=== PATIENT | female | born 1935 | race African-American/Black ===

== ENCOUNTER 2016-07-26 08:56 | Outpatient (CLI) | payer MEDICARE, BC | END 2016-07-26 08:57 | LOC: NAVSJIPCSP 08:56 | PROVIDERS: ATTEND Internal Medicine | DX: E78.5 Hyperlipidemia, unspecified (principal); I11.9 Hypertensive heart disease without heart failure; Z79.899 Other long term (current) drug therapy | CPT/HCPCS: 36415; 80061 ==

== ENCOUNTER 2016-10-23 08:05 | Outpatient (CLI) | payer MEDICARE, BC ==
[2016-10-23 13:08] LABS: #Basophils 0.1 thou/uL (0.0-0.2); #Eosinphils 0.2 thou/uL (0.0-0.7); #Lymphocytes 1.2 thou/uL (1.20-3.40); #Monocytes 0.5 thou/uL (0.11-0.59); #Neutrophils 2.9 thou/uL (1.40-6.50); %Basophils 1.8 % (0.0-1.0); %Eosinophils 4.1 % (0.0-10.0); %Lymphocytes 24.7 % (21.0-51.0); %Monocytes 10.5 % (0.0-10.0); %Neutrophils 58.8 % (42.0-75.0); Hemoglobin 11.4 g/dL (12.0-16.0); Mean Corpuscular HGB CONC 30.6 g/dL (32.0-36.0); Mean Corpuscular Hemoglobin 25.7 pg (27.0-31.0); Mean Corpuscular Volume 84.1 fl (81.0-99.0); Mean Platelet Volume 7.3 fL (7.4-10.4); Platelet Count 237 thou/uL (130-400); RBC Distribution Width 13.2 % (11.5-14.5); Red Blood Cell (RBC) Count 4.45 mill/uL (4.20-5.40)
[2016-10-23 13:11] LABS: ALT (SGPT) 9 U/L (8-55); AST (SGOT) 19 U/L (5-34); Albumin 3.7 g/dL (3.4-4.8); Alkaline Phosphatase 86 U/L (40-150); Anion Gap 13 mmol/L (10-20); BUN (Urea Nitrogen) 16 mg/dL (9.8-20.1); Bilirubin, Total 0.3 mg/dL (0.2-1.2); Calc. Creatinine Clearance 0 mL/min (70-130); Calcium 9.5 mg/dL (7.8-10.44); Carbon Dioxide 24 mmol/L (23-31); Cardiac Risk 2.6 (Less than 4.5); Chloride 104 mmol/L (98-107); Cholesterol 206 mg/dl (< 200 Desired); Estimated GFR-MDRD 56; Globulin 4.1 g/dL (2.4-3.5); Glucose 85 mg/dL (83-110); HDL Cholesterol 79 mg/dL (>60 Neg Risk); LDL Cholesterol, Calculated 116 mg/dL; Potassium 4.4 mmol/L (3.5-5.1); Protein, Total 7.8 g/dL (6.0-8.3); Sodium 137 mmol/L (136-145); Triglycerides 54 mg/dL (Less than 150)
== END 2016-10-23 08:06 ==
LOC: NAVSJIPCSP 08:05
PROVIDERS: ATTEND Internal Medicine
DX: E78.5 Hyperlipidemia, unspecified (principal); I11.9 Hypertensive heart disease without heart failure; Z79.899 Other long term (current) drug therapy
CPT/HCPCS: 36415; 80053; 80061; 85025

== ENCOUNTER 2017-01-25 08:19 | Outpatient (CLI) | payer MEDICARE, BC ==
[2017-01-25 12:44] LABS: Cardiac Risk 2.5 (Less than 4.5)
== END 2017-01-25 08:20 | disposition home or self-care (01) ==
LOC: NAVSJIPCSP 08:19
PROVIDERS: ATTEND Internal Medicine
DX: E78.5 Hyperlipidemia, unspecified (principal); Z79.899 Other long term (current) drug therapy
CPT/HCPCS: 36415; 80061

== ENCOUNTER 2017-08-28 08:54 | Observation (INO) | payer MEDICARE, BC ==
[2017-08-28] MEDS ORDERED: Sodium Chloride 0.9% 1,000 ML ONE (09:04)
[2017-08-28] MEDS ORDERED: Acetaminophen 500 MG TAB ONE (09:24)
[2017-08-28 09:36] LABS: ALT (SGPT) 17 U/L (8-55); AST (SGOT) 33 U/L (5-34); Albumin 3.4 g/dL (3.4-4.8); Alkaline Phosphatase 116 U/L (40-150); Anion Gap 15 mmol/L (10-20); BUN (Urea Nitrogen) 22 mg/dL (9.8-20.1); Bilirubin, Total 0.6 mg/dL (0.2-1.2); Calc. Creatinine Clearance 0 mL/min (70-130); Calcium 9.5 mg/dL (7.8-10.44); Carbon Dioxide 20 mmol/L (23-31); Chloride 108 mmol/L (98-107); Estimated GFR-MDRD 34; Globulin 4.2 g/dL (2.4-3.5); Glucose 99 mg/dL (83-110); Protein, Total 7.6 g/dL (6.0-8.3); Sodium 139 mmol/L (136-145)
[2017-08-28 09:53] LABS: Hemoglobin 12.2 g/dL (12.0-16.0); Mean Corpuscular HGB CONC 31.8 g/dL (32.0-36.0); Mean Corpuscular Hemoglobin 25.5 pg (27.0-31.0); Mean Corpuscular Volume 80.2 fl (81.0-99.0); Mean Platelet Volume 7.8 fL (7.4-10.4); Platelet Count 185 thou/uL (130-400); RBC Distribution Width 12.8 % (11.5-14.5); Red Blood Cell (RBC) Count 4.78 mill/uL (4.20-5.40); White Blood Cell (WBC) Count 4.3 thou/uL (4.8-10.8)
[2017-08-28 10:32] LABS: Band 28 % (5-11); Burr Cells SLIGHT = 2-5 cells (100X) (0-1/hpf); Hypochromia SLIGHT = 6-15 cells (100X) (0-5/hpf); Lymphocytes 3 % (21-51); MDiff Complete? YES; Metamyelocyte 1 % (0-0); Monocytes 2 % (0-10); Neutrophil 65 % (42-75); PLT Morphology Comment Appears Adequate
[2017-08-28] MEDS ORDERED: Ondansetron HCl/PF 4 MG/2 ML Vial IVP PRN (12:58)
[2017-08-28] MEDS ORDERED: Ondansetron ODT 4 MG TAB PO PRN (12:58)
[2017-08-28] MEDS ORDERED: Sodium Chloride 0.9% 1,000 ML IV SCH (13:00)
[2017-08-28] MEDS ORDERED: Acetaminophen 500 MG TAB PO PRN (13:10)
--- NOTE | 2017-08-28 13:28 | HP ---
DATE OF ADMISSION: 08/28/2017 CHIEF COMPLAINT: Nausea, vomiting, and diarrhea. BRIEF HISTORY: This is a very pleasant 82-year-old -[place] female who presented to the [facility] behavioral health unit in [place] with nausea, vomiting, diarrhea since 2:00 early this morning. She denies any unusual diet. She denies any fever or chills. She denies any chest pain or shortness of breath. S he did have some lightheadedness. She was evaluated in the emergency room and was found to be slight ly dehydrated and was given a liter of IV fluids. She is feeling better, but still is weak. Laboratory values show an elevation in her creatinine to 1.7 and 27% bands. I advised the ER physici an to admit her to observation with IV fluids, Zofran, will start her on a clear liquid diet. Recheck laboratory values in the morning and if she is doing well, will discharge her home. The hugh ent denies any concerns other than lightheadedness. Her friend is in the room. PAST MEDICAL HISTORY: 1. Hypertension. 2. Glaucoma. 3. Renal calculi. 4. History of bladder cancer, status post cystectomy and urostomy placement. PAST SURGICAL HISTORY: 1. Cystectomy and urostomy placement. 2. Hysterectomy. FAMILY HISTORY: Noncontributory to current admission. PSYCHOSOCIAL HISTORY: Former smoker. No alcohol or IV drug abuse. Fairly active and independent. ALLERGIES: No known drug allergies. REVIEW OF SYSTEMS: Cardiovascular System: Denies any chest pain, shortness of breath, palpitations, PND, orthopnea, pedal edema. Respiratory System: Denies any chronic cough, expectoration or pleuri tic type chest pain. Gastrointestinal System: Denies any nausea, vomiting, diarrhea, constipation, hematemesis, melena, hematochezia. Genitourinary System: Denies any frequency, urgency, dysuria or hematuria. Central Nervous System: Generalized weakness. SHEENT: No difficulty with speech, visio n, hearing or swallowing. PHYSICAL EXAMINATION: GENERAL: Very pleasant, 82-year-old -Tongan female resting comfortably in no apparent distr ess. She responds appropriately to questions. She is alert, awake, and oriented x3. VITAL SIGNS: She is afebrile, heart rate 72, respirations 18, blood pressure not charted yet, but in the emergency room, it was within normal limits. HEENT: Normocephalic, atraumatic. Pupils equal and reactive to light and accommodation. NECK: No JVD or thyromegaly, cervical adenopathy, throat exudates. Oropharyngeal mucosa is dry. CARDIOVASCULAR SYSTEM: S1, S2, rate and rhythm regular. RESPIRATORY SYSTEM: Vesicular breath sounds heard in all lung carver. ABDOMEN: Soft, nontender, bowel sounds heard in all quadrants. Her ostomy site is healthy. EXTREMITIES: Without cyanosis or clubbing. Peripheral pulses are palpable. CENTRAL NERVOUS SYSTEM: Grossly nonfocal. LABORATORY VALUES: Done in the emergency room shows a white count of 4.3, H and H is 12.2 and 38.3. Sodium 139, potassium 4.0, BUN and creatinine 22 and 1.73. IMPRESSION: 1. Nausea, vomiting, diarrhea since 2:00 this morning with no unusual diet, possible viral syndrome. 2. Mild renal insufficiency, likely secondary to dehydration. 3. Hypertension. 4. Glaucoma. 5. History of bladder cancer, status post cystectomy and urostomy. 6. History of renal calculi, stable. PLAN: 1. Admit her to observation. 2. IV fluids. 3. IV Zofran. 4. Resume home medications. 5. Clear liquid diet, advance as tolerated. 6. DVT and stress ulcer prophylaxis. 7. Decubitus precautions. 8. Recheck laboratory values in the morning. 9. Anticipate discharging her home tomorrow. I discussed with patient and family in detail. All qu estions answered.
[2017-08-28] MEDS ORDERED: Famotidine 20 MG TAB PO SCH ×2 (13:30→14:00)
[2017-08-28 13:35] VITALS: BMI 23.7
[2017-08-28] MEDS: Dextrose 5 % And 0.9 % NaCl 1,000 ML IV SCH (13:53)
[2017-08-28] MEDS: Famotidine 20 MG TAB PO SCH (21:00)
[2017-08-29] MEDS: Dextrose 5 % And 0.9 % NaCl 1,000 ML IV SCH (00:25)
[2017-08-29] MEDS ORDERED: Ondansetron HCl/PF 4 MG/2 ML Vial IVP PRN (02:54)
[2017-08-29] MEDS ORDERED: Ondansetron ODT 4 MG TAB PO PRN (02:54)
[2017-08-29 05:38] LABS: Anion Gap 18 mmol/L (10-20)
[2017-08-29 05:39] LABS: Band 11 % (5-11); Eosinophils 1 % (0-10); Hemoglobin 11.5 g/dL (12.0-16.0); Lymphocytes 3 % (21-51); MDiff Complete? YES; Mean Corpuscular HGB CONC 31.6 g/dL (32.0-36.0); Mean Corpuscular Volume 82.2 fl (81.0-99.0); Mean Platelet Volume 7.8 fL (7.4-10.4); Metamyelocyte 2 % (0-0); Monocytes 6 % (0-10); Myelocyte 4 % (0-0); Neutrophil 73 % (42-75); PLT Morphology Comment Appears Adequate; Platelet Count 146 thou/uL (130-400); RBC Distribution Width 13.2 % (11.5-14.5); RBC Morphology Normal; Red Blood Cell (RBC) Count 4.41 mill/uL (4.20-5.40); White Blood Cell (WBC) Count 27.3 thou/uL (4.8-10.8)
[2017-08-29 05:51] LABS: BUN (Urea Nitrogen) 34 mg/dL (9.8-20.1); Calc. Creatinine Clearance 13 mL/min (70-130); Calcium 8.8 mg/dL (7.8-10.44); Carbon Dioxide 16 mmol/L (23-31); Chloride 109 mmol/L (98-107); Estimated GFR-MDRD 15; Glucose 105 mg/dL (83-110); Potassium 4.2 mmol/L (3.5-5.1); Sodium 139 mmol/L (136-145)
[2017-08-29] MEDS ORDERED: Dextrose 5 % And 0.9 % NaCl 1,000 ML IV SCH (07:00)
[2017-08-29] MEDS: Famotidine 20 MG TAB PO SCH (08:19)
[2017-08-29 08:36] VITALS: BP 117/55; TEMP 98.9
--- NOTE | 2017-08-29 13:22 | DIS ---
DATE OF ADMISSION: To observation, 08/28/2017 DATE OF DISCHARGE: 08/29/2017 PRINCIPAL DIAGNOSES: 1. Possible sepsis. 2. Acute renal failure. 3. Lactic acidosis. 4. Hypertension. 5. History of renal calculi. 6. Resolved nausea, vomiting and diarrhea. COMPLICATIONS: None. ADVERSE REACTIONS: None. PROCEDURES: None. CONSULTATIONS: None. HOSPITAL COURSE: The patient presented to the emergency room with an 8-hour history of nausea, vomit ing and diarrhea. Her workup was essentially unremarkable. White count was normal. Flu swab was ne gative. Her creatinine was increased from 1.3. Her baseline to 1.7 and it was felt prudent to admit her to the hospital for IV fluids and observation and make sure she tolerates her diet, so she was a dmitted under observation. She was doing reasonably well yesterday with minimal abdominal pain. She did not have any further diarrhea or vomiting. She apparently continued to complain of abdominal pa in, which was managed with Tylenol. This morning, her white count was up to 27,000 and her creatinin e had gone up to 3.2. She has been on IV fluids. I ordered a stat lactic acid level and it came sarah k at 4.6. The patient was transferred to [facility] in [place] for evaluation of possible sepsis an d to rule out any ischemic bowel or obstructive uropathy, discussed with Dr. Saab, the ER physicia n. PHYSICAL EXAMINATION: VITAL SIGNS: On the day of discharge, she is afebrile, heart rate is 95, respirations are 20, oxygen saturation 92% on room air and blood pressure 117/55. CARDIOVASCULAR SYSTEM: S1 and S2 plus. RESPIRATORY SYSTEM: Normal vesicular breath sounds. ABDOMEN: Soft. Minimal tenderness. Bowel sounds heard in all quadrants. EXTREMITIES: Without cyanosis or clubbing. LABORATORY VALUES: This morning, white count 27.3, hemoglobin and hematocrit 11.5 and 36.3. Automatic Centrifugal Station Operator ry shows a sodium of 139, potassium 4.2, BUN and creatinine is 34 and 3.5. Lactic acid was 4.2. For full details, please see chart. DISCHARGE MEDICATIONS: Really are just Tylenol 650 mg q.6 hours p.r.n. and her blood pressure medica tion, which has been on hold since admission.
== END 2017-08-29 09:36 | disposition short-term general hospital (02) ==
LOC: NAV ERS 08:54 → NAV ACUTE 12:42
PROVIDERS: ADMIT Internal Medicine; ATTEND Internal Medicine
DX: R11.2 Nausea with vomiting, unspecified (principal); R19.7 Diarrhea, unspecified; N17.9 Acute kidney failure, unspecified; E87.2 Acidosis; I10 Essential (primary) hypertension; R42 Dizziness and giddiness; H40.9 Unspecified glaucoma; Z79.899 Other long term (current) drug therapy; Z90.6 Acquired absence of other parts of urinary tract; Z90.710 Acquired absence of both cervix and uterus; Z93.6 Other artificial openings of urinary tract status; Z87.442 Personal history of urinary calculi; Z85.51 Personal history of malignant neoplasm of bladder; Z87.891 Personal history of nicotine dependence
CPT/HCPCS: 36415; 51798; 80048; 80053; 83605; 85025; 87804; 96360; 96361; 96374; A4216; G0378; J2405; J7042; J7050

== ENCOUNTER 2019-02-12 09:43 | Emergency (ER) | payer MEDICARE, BC ==
[2019-02-12] MEDS ORDERED: Sodium Chloride 0.9% 1,000 ML ONE ×2 (10:50→12:41)
[2019-02-12 10:52] LABS: Bilirubin Small (Negative); Blood, Urine Large (Negative); Clarity Cloudy (Clear); Glucose, Urine (Dipstick) Negative (Negative); Leukocyte Large (Negative); Nitrite Negative (Negative); Protein, Urine (Dipstick) > or equal to 300 mg/dL (Neg-Trace); Urobilinogen 0.2 mg/dL (Less than 2)
[2019-02-12] MEDS ORDERED: Ondansetron PF 4 MG/2 ML Vial ONE (10:56)
[2019-02-12 11:04] LABS: ALT (SGPT) 100 U/L (8-55); AST (SGOT) 72 U/L (5-34); Albumin 3.6 g/dL (3.4-4.8); Alkaline Phosphatase 365 U/L (40-150); Anion Gap 21 mmol/L (10-20); BUN (Urea Nitrogen) 53 mg/dL (9.8-20.1); Bilirubin, Total 0.9 mg/dL (0.2-1.2); Calc. Creatinine Clearance 0 mL/min (70-130); Calcium 9.7 mg/dL (7.8-10.44); Carbon Dioxide 16 mmol/L (23-31); Chloride 102 mmol/L (98-107); Estimated GFR-MDRD 12; Globulin 3.9 g/dL (2.4-3.5); Glucose 84 mg/dL (83-110); Protein, Total 7.5 g/dL (6.0-8.3); Sodium 135 mmol/L (136-145)
[2019-02-12 11:38] LABS: Anisocytosis SLIGHT = 6-15 cells (100X) (0-5/hpf); Band 12 % (5-11); Hemoglobin 11.2 g/dL (12.0-16.0); Lymphocytes 4 % (21-51); MDiff Complete? YES; Mean Corpuscular HGB CONC 30.4 g/dL (32.0-36.0); Mean Corpuscular Volume 79.1 fL (78.0-98.0); Mean Platelet Volume 9.5 fL (7.4-10.4); Microcytosis SLIGHT = 6-15 cells (100X) (0-5/hpf); Monocytes 2 % (0-10); Neutrophil 82 % (42-75); Platelet Count 132 thou/uL (130-400); Platelet Morphology Comment Appears Adequate; RBC Distribution Width 13.5 % (11.5-14.5); Red Blood Cell (RBC) Count 4.67 mill/uL (4.20-5.40); White Blood Cell (WBC) Count 12.4 thou/uL (4.8-10.8)
[2019-02-12 11:41] LABS: Bacteria/HPF 3+ HPF (None Seen); WBC/HPF 21-50 HPF (0-3)
[2019-02-12 11:42] LABS: Triple Phosphate Crystal 2+ HPF (None Seen)
[2019-02-12] MEDS ORDERED: cefTRIAXone\\ROCEPHIN 1 GM VIAL ONE (11:50)
--- NOTE | 2019-02-12 12:31 | ULT ---
US Gallbladder RUQ: 02/12/2019 11:13 AM CLINICAL HISTORY: Fever with nausea and vomiting. STUDY: Limited right upper quadrant ultrasound of abdomen. COMPARISON: None. FINDINGS: Liver: Size: Normal. Echogenicity: Normal. Contour: Smooth. Mass: None. Bile ducts: No intrahepatic or extrahepatic biliary dilatation. Common bile duct measures 4 mm. Gallbladder: Cholelithiasis. Pancreas: Head, body, and tail appear normal. Right kidney: No pelvicalyceal dilatation. Right kidney measuring 10.8 cm in length. IMPRESSION: Cholelithiasis
[2019-02-12] MEDS ORDERED: Sodium Chloride 0.9% 250 ML 250 ML ONE (12:53)
[2019-02-12] MEDS ORDERED: Vancomycin HCl 500 MG VIAL ONE (12:53)
== END 2019-02-12 13:12 | disposition short-term general hospital (02) ==
LOC: NAV ERS 09:43
DX: N39.0 Urinary tract infection, site not specified (principal); K80.20 Calculus of gallbladder without cholecystitis without obstruction; D72.825 Bandemia; N28.9 Disorder of kidney and ureter, unspecified; I10 Essential (primary) hypertension; Z87.891 Personal history of nicotine dependence; Z79.899 Other long term (current) drug therapy
CPT/HCPCS: 76705; 80053; 81003; 81015; 83605; 84484; 85025; 87040; 87077; 87086; 87149; 87186; 93005; 96361; 96365; 96375; J0696; J2405; J3370; J7050

== ENCOUNTER 2020-07-22 08:55 | Inpatient (IN) | payer MEDICARE, BC ==
[2020-07-22 10:28] LABS: Clarity Cloudy (Clear)
[2020-07-22 10:29] LABS: ALT (SGPT) 24 U/L (8-55); AST (SGOT) 30 U/L (5-34); Albumin 3.4 g/dL (3.4-4.8); Alkaline Phosphatase 131 U/L (40-110); Anion Gap 17 mmol/L (10-20); BUN (Urea Nitrogen) 31 mg/dL (9.8-20.1); Bilirubin, Total 0.8 mg/dL (0.2-1.2); Calc. Creatinine Clearance 0 mL/min (70-130); Calcium 9.7 mg/dL (7.8-10.44); Carbon Dioxide 20 mmol/L (23-31); Chloride 104 mmol/L (98-107); Globulin 3.9 g/dL (2.4-3.5); Glucose 113 mg/dL (83-110); Potassium 4.8 mmol/L (3.5-5.1); Protein, Total 7.3 g/dL (5.8-8.1); Sodium 136 mmol/L (136-145)
[2020-07-22 10:29] LABS: pH, Urine 8.5 (5.0-9.0)
[2020-07-22 10:30] LABS: Bilirubin Negative (Negative); Glucose, Urine (Dipstick) Negative (Negative); Ketone, Urine Negative (Negative); Leukocyte Large (Negative); Nitrite Negative (Negative); Protein, Urine (Dipstick) 100 mg/dL (Neg-Trace); Urobilinogen 0.2 mg/dL (Less than 2)
[2020-07-22 10:31] LABS: Blood, Urine Large (Negative)
[2020-07-22 10:37] LABS: Hemoglobin 9.3 g/dL (12.0-16.0); MDiff Complete? YES; Mean Corpuscular HGB CONC 31.1 g/dL (32.0-36.0); Mean Corpuscular Hemoglobin 25.9 pg (27.0-31.0); Mean Corpuscular Volume 83.2 fL (78.0-98.0); Mean Platelet Volume 7.3 fL (7.4-10.4); Platelet Count 241 thou/uL (130-400); RBC Distribution Width 13.6 % (11.5-14.5); Red Blood Cell (RBC) Count 3.61 mill/uL (4.20-5.40); White Blood Cell (WBC) Count 21.1 thou/uL (4.8-10.8)
[2020-07-22 10:38] LABS: Band 10 % (5-11); Lymphocytes 1 % (21-51); Monocytes 4 % (0-10); Neutrophil 85 % (42-75); Platelet Morphology Comment Appears Adequate
[2020-07-22 10:41] LABS: RBC/HPF Greater than 50 HPF (0-3); Squamous Epithelial None Seen HPF (0-3); WBC/HPF Greater Than 50 HPF (0-3)
[2020-07-22 10:42] LABS: Bacteria/HPF 1+ HPF (None Seen); Mucous/LPF 3+ LPF (<2+)
[2020-07-22] MEDS ORDERED: cefTRIAXone\\ROCEPHIN 2 GM VIAL ONE (11:44)
[2020-07-22] MEDS ORDERED: Sodium Chloride 0.9% 1,000 ML ONE (11:44)
[2020-07-22] MEDS ORDERED: Sodium Chloride 0.9% 250 ML 250 ML ONE (11:49)
[2020-07-22] MEDS ORDERED: Sodium Chloride 0.9% 0 ML ONE (11:51)
[2020-07-22 13:57] VITALS: BMI 23.0
[2020-07-22] MEDS ORDERED: Acetaminophen 325 MG TAB PO PRN (14:15)
[2020-07-22] MEDS ORDERED: Sodium Chloride 0.9% 1,000 ML IV SCH (14:15)
[2020-07-22] MEDS ORDERED: Ondansetron ODT 4 MG TAB SL PRN (14:15)
[2020-07-22] MEDS ORDERED: Ondansetron PF 4 MG/2 ML Vial IVP PRN (14:15)
[2020-07-22 14:41] LABS: Lactic Acid 0.9 mmol/L (0.5-2.2)
[2020-07-22 15:24] LABS: SARS-CoV-2 NAA Rapid Test Not Detected (NotDetected)
[2020-07-22] MEDS ORDERED: Dorzolamide HCl 2% Ophth Soln 10 ml Bottle EA EYE SCH ×2 (21:00→22:15)
[2020-07-22] MEDS ORDERED: TIMOLOL 0.25% EA EYE SCH (21:00)
[2020-07-22] MEDS ORDERED: cefTRIAXone\\ROCEPHIN 2 GM in Sodium Chloride 0.9% 100 ML IVPB SCH (21:00)
[2020-07-22] MEDS: Latanoprost 0.005% Ophth Soln 2.5 ml Bottle EA EYE SCH (21:32)
[2020-07-22] MEDS ORDERED: Timolol 0.5% Ophth Soln 5 ml Bottle EA EYE SCH (22:15)
[2020-07-23] MEDS ORDERED: Vancomycin HCl 1 GM in Sodium Chloride 0.9% 250 ML 250 ML IVPB SCH (02:00)
[2020-07-23] MEDS ORDERED: Cyclobenzaprine 10 MG TAB PO PRN (08:13)
[2020-07-23] MEDS: Sodium Chloride 0.9% 1,000 ML IV SCH ×2 (08:44→18:39)
[2020-07-23] MEDS: Amlodipine 5 MG TAB PO SCH (08:45)
[2020-07-23] MEDS: Latanoprost 0.005% Ophth Soln 2.5 ml Bottle EA EYE SCH ×2 (08:46→21:35)
[2020-07-23] MEDS ORDERED: Dorzolamide HCl 2% Ophth Soln 10 ml Bottle EA EYE SCH (09:00)
[2020-07-23] MEDS ORDERED: Acetaminophen 325 MG TAB PO PRN (12:25)
[2020-07-23] MEDS ORDERED: FLU VACC QS2020-21(65YR UP)/PF 240 MCG/0.7 ML SYRINGE IM ONE (14:15)
[2020-07-23] MEDS ORDERED: cefTRIAXone\\ROCEPHIN 2 GM in Sodium Chloride 0.9% 100 ML IVPB SCH (21:00)
[2020-07-23] MEDS ORDERED: Timolol 0.5% Ophth Soln 5 ml Bottle EA EYE SCH (21:00)
[2020-07-23] MEDS: Timolol 0.5% Ophth Soln 5 ml Bottle EA EYE SCH (21:36)
[2020-07-24 02:23] LABS: #Eosinphils 0.3 thou/uL (0.0-0.7); #Lymphocytes 1.2 thou/uL (1.20-3.40); #Monocytes 1.1 thou/uL (0.11-0.59); #Neutrophils 10.3 thou/uL (1.40-6.50); %Basophils 0.4 % (0.0-1.0); %Eosinophils 2.5 % (0.0-10.0); %Lymphocytes 9.4 % (21.0-51.0); %Monocytes 8.7 % (0.0-10.0); %Neutrophils 79.1 % (42.0-75.0); Hemoglobin 9.5 g/dL (12.0-16.0); Manual Diff?? NO; Mean Corpuscular HGB CONC 31.3 g/dL (32.0-36.0); Mean Corpuscular Hemoglobin 25.9 pg (27.0-31.0); Mean Platelet Volume 6.8 fL (7.4-10.4); Platelet Count 258 thou/uL (130-400); RBC Distribution Width 13.7 % (11.5-14.5); Red Blood Cell (RBC) Count 3.67 mill/uL (4.20-5.40); White Blood Cell (WBC) Count 13.1 thou/uL (4.8-10.8)
[2020-07-24 02:24] LABS: Vancomycin, Random 10.4 ug/mL (See Comment)
[2020-07-24 02:41] LABS: Anion Gap 13 mmol/L (10-20); BUN (Urea Nitrogen) 22 mg/dL (9.8-20.1); Calc. Creatinine Clearance 32 mL/min (70-130); Calcium 8.5 mg/dL (7.8-10.44); Carbon Dioxide 19 mmol/L (23-31); Glucose 94 mg/dL (83-110); Potassium 3.7 mmol/L (3.5-5.1); Sodium 138 mmol/L (136-145)
[2020-07-24 02:43] LABS: Chloride 110 mmol/L (98-107)
[2020-07-24] MEDS ORDERED: Vancomycin HCl 1 GM in Sodium Chloride 0.9% 250 ML 250 ML IVPB SCH ×2 (03:00→04:00)
[2020-07-24] MEDS ORDERED: Vancomycin 1.5 GRAM/300 ML BAG 1.5 GM in Premix Bag 1 BAG IVPB SCH ×2 (03:00→03:15)
[2020-07-24] MEDS: Sodium Chloride 0.9% 1,000 ML IV SCH ×3 (03:06→23:30)
[2020-07-24] MEDS: Amlodipine 5 MG TAB PO SCH (08:37)
[2020-07-24] MEDS: Timolol 0.5% Ophth Soln 5 ml Bottle EA EYE SCH ×2 (08:40→20:54)
--- NOTE | 2020-07-24 10:27 | HP ---
CHIEF COMPLAINT: Fever, not feeling well, leukocytosis, possible urosepsis. BRIEF HISTORY: This is a pleasant 85-year-old female, who is well known to me, presented to the emergency room with flank pain, nausea, and vomiting as well as possible fever and weakness. Workup is consistent with urosepsis with an elevated white count of 20,000 and worsening renal insufficiency, likely due to dehydration. She was given a dose of Rocephin and vancomycin in the ER as well as started on IV fluids and she is being admitted for further evaluation and management. The patient states that this started a couple of days ago. She has a history of similar episodes in the past due to her history of bladder resection and ileal conduit placement and she normally has a supply of Bactrim at home, which she takes whenever she starts feeling the symptoms, but this time it did not work. No new medications. No lightheadedness or dizziness. No diarrhea. PAST MEDICAL HISTORY: 1. Hypertension. 2. Glaucoma. 3. Vitamin D insufficiency. PAST SURGICAL HISTORY: Urostomy and hysterectomy. PSYCHOSOCIAL HISTORY: Former smoker, quit smoking a long time ago. Denies any alcohol, recreational drug abuse. Fairly active and independent. FAMILY HISTORY: Noncontributory to current admission. MEDICATIONS AT HOME: She is on: 1. Lotrel 10/40 one tablet daily. 2. Latanoprost eyedrops b.i.d. 3. Timolol maleate eyedrops b.i.d. 4. Vitamin D3, 1000 international units daily. 5. Calcium 500 mg b.i.d. ALLERGIES: NO KNOWN DRUG ALLERGIES. REVIEW OF SYSTEMS: CARDIOVASCULAR SYSTEM: Denies any chest pain, shortness of breath, palpitations, PND, orthopnea, pedal edema. RESPIRATORY SYSTEM: Denies any chronic cough, expectoration, or pleuritic-type chest pain. GASTROINTESTINAL SYSTEM: Positive for nausea and vomiting. Denies any hematemesis, melena, hematochezia. GENITOURINARY SYSTEM: Has been noticing real strong smell to her urine. Denies any CVA angle tenderness. EXTREMITIES: Occasional joint pains. SKIN: Denies any rash. HEENT: Denies any changes with speech, vision, hearing, or swallowing. CENTRAL NERVOUS SYSTEM: Denies any focal numbness, weakness, or fainting spells. PHYSICAL EXAMINATION: GENERAL: Very pleasant 85-year-old female, who is seen in the emergency room after admission. She states that she feels slightly better with the IV fluids. She is alert, awake, and oriented x3. VITAL SIGNS: She is afebrile. Heart rate 77, respirations 18, oxygen saturation 96% on room air, blood pressure 148/66. HEENT: Normocephalic and atraumatic. Pupils are equally reacting to light and accommodation. No JVD, thyromegaly, cervical adenopathy, or throat exudates. No carotid bruits. CARDIOVASCULAR SYSTEM: S1, S2 plus. Rate and rhythm regular. RESPIRATORY SYSTEM: Normal vesicular breath sounds heard in all lung carver. ABDOMEN: Soft, nontender. Bowel sounds heard in all quadrants. No organomegaly. No palpable mass. No CV angle tenderness. Urostomy site is healthy. EXTREMITIES: Without cyanosis, clubbing, or edema. Evidence for DJD is present. CENTRAL NERVOUS SYSTEM: Awake and responsive. Cranial nerves II through XII intact. Generalized weakness otherwise nonfocal. LABORATORY VALUES: Done in the emergency room shows a white count of 21,000. H and H are 9.3 and 30. Sodium 136, potassium 4.8. BUN and creatinine are 31 and 2.29. Urinalysis shows greater than 50 rbc's and wbc's. IMPRESSION: 1. Possible urosepsis. 2. Hypertension. 3. Glaucoma. 4. Vitamin D deficiency. 5. Worsening renal insufficiency, likely dehydration. PLAN: 1. Admit to the hospital to inpatient service. 2. Sepsis protocol with vancomycin and Rocephin. 3. Await urine cultures and blood cultures .. 4. Continue IV fluids normal saline at 100 mL an hour. 5. Zofran 4 mg q.6 hours p.r.n. for nausea. 6. Resume home medications, but instead of the Lotrel given her renal insufficiency, we will start her on just amlodipine. 7. Nutritional support with heart healthy diet. 8. Recheck CBC and BMP in the morning. 9. Discussed with the patient in detail and all questions answered. 10. Estimated length of stay 3 days. 11. No family at bedside. Job ID: [id number]
--- NOTE | 2020-07-24 10:44 | PRG ---
DATE OF SERVICE: 07/23/2020 SUBJECTIVE: Ms. Marin is up on the side of her bed, eating lunch. She states that she feels much better. She is hoping to go home today. I advised her that we still do not have a definitive diagnosis on the source of infection and she is still on the IV antibiotics and I would recommend her stay for at least another day until we have some final results on the culture back and her renal functions returns to normal, anticipate switching her to oral antibiotics tomorrow and discharging her on Sunday, the patient is agreeable. PHYSICAL EXAMINATION: GENERAL: She is afebrile. VITAL SIGNS: Heart rate is 69, respirations 18, oxygen saturation 98% on room air, blood pressure 143/64. CARDIOVASCULAR: S1-S2 plus. RESPIRATORY SYSTEM: Normal vesicular breath sounds. ABDOMEN: Soft, nontender. Bowel sounds heard in all quadrants. Urostomy site is healthy. EXTREMITIES: Without cyanosis, clubbing. CENTRAL NERVOUS SYSTEM: Generalized weakness, otherwise nonfocal. IMPRESSION: 1. Possible urosepsis. 2. Renal insufficiency, likely dehydration from the nausea and vomiting and poor p.o. intake. 3. Hypertension. 4. Glaucoma. 5. Vitamin D deficiency. 6. History of bladder cancer, status post bladder resection and ileal conduit/urostomy placement. PLAN: 1. Continue IV antibiotics and IV fluids. 2. Await urine and blood cultures. 3. Continue home medications. 4. Increase activity as tolerated. 5. Recheck CBC and BMP. 6. Dr. Zamora on-call this weekend. 7. Anticipate switching her to oral antibiotics tomorrow, stopping IV fluids and then discharging her on Sunday. Discussed with the patient and nursing. 8. All questions answered. Job ID: [id number]
[2020-07-24] MEDS ORDERED: Docusate 100 MG CAP PO SCH (17:00)
[2020-07-24] MEDS: Latanoprost 0.005% Ophth Soln 2.5 ml Bottle EA EYE SCH (20:53)
[2020-07-24] MEDS: Sulfameth/Trimethoprim DS 800-160mg TAB PO SCH (20:53)
[2020-07-25 05:40] LABS: #Lymphocytes 1.3 thou/uL (1.20-3.40); #Neutrophils 7.4 thou/uL (1.40-6.50); %Basophils 1.2 % (0.0-1.0); %Eosinophils 3.5 % (0.0-10.0); %Lymphocytes 12.6 % (21.0-51.0); %Monocytes 10.8 % (0.0-10.0); %Neutrophils 71.9 % (42.0-75.0); Hemoglobin 10.3 g/dL (12.0-16.0); Manual Diff?? NO; Mean Corpuscular HGB CONC 30.7 g/dL (32.0-36.0); Mean Corpuscular Hemoglobin 25.4 pg (27.0-31.0); Mean Corpuscular Volume 82.7 fL (78.0-98.0); Mean Platelet Volume 6.4 fL (7.4-10.4); Platelet Count 291 thou/uL (130-400); RBC Distribution Width 13.7 % (11.5-14.5); Red Blood Cell (RBC) Count 4.04 mill/uL (4.20-5.40); White Blood Cell (WBC) Count 10.2 thou/uL (4.8-10.8)
[2020-07-25 05:41] LABS: #Basophils 0.1 thou/uL (0.0-0.2); #Eosinphils 0.4 thou/uL (0.0-0.7); #Monocytes 1.1 thou/uL (0.11-0.59)
[2020-07-25 05:50] LABS: ALT (SGPT) 20 U/L (8-55); AST (SGOT) 16 U/L (5-34); Albumin 3.2 g/dL (3.4-4.8); Alkaline Phosphatase 178 U/L (40-110); Anion Gap 13 mmol/L (10-20); BUN (Urea Nitrogen) 13 mg/dL (9.8-20.1); Bilirubin, Total 0.2 mg/dL (0.2-1.2); Calc. Creatinine Clearance 35 mL/min (70-130); Calcium 8.9 mg/dL (7.8-10.44); Carbon Dioxide 20 mmol/L (23-31); Chloride 112 mmol/L (98-107); Globulin 3.9 g/dL (2.4-3.5); Glucose 93 mg/dL (83-110); Protein, Total 7.1 g/dL (5.8-8.1); Sodium 141 mmol/L (136-145)
[2020-07-25 08:16] VITALS: BP 173/80; TEMP 99.3
[2020-07-25] MEDS: Amlodipine 5 MG TAB PO SCH (08:38)
[2020-07-25] MEDS: Sulfameth/Trimethoprim DS 800-160mg TAB PO SCH (08:38)
[2020-07-25] MEDS: Timolol 0.5% Ophth Soln 5 ml Bottle EA EYE SCH (08:40)
[2020-07-25] MEDS ORDERED: Docusate 100 MG CAP PO SCH (09:00)
[2020-07-25] MEDS: Sodium Chloride 0.9% 1,000 ML IV SCH (10:25)
--- NOTE | 2020-07-28 06:59 | PQF ---
CLINICAL DOCUMENTATION CLARIFICATION FORM: Dear : Sarah Post MD Date / Time: 07/28/2020 Please exercise your independent, professional judgment in responding to the clarification form. Clinical indicators are provided on the bottom of this form for your review Please check appropriate box(es): [ ] Sepsis due to: Due to: [ ] Device (please specify) [ ] Implant [ ] Graft [ ] Infusion Due to: [ ] Procedure (please specify) [ ] Severe sepsis with associated acute organ dysfunction: [ ] Acute Respiratory Failure [ ] Acute Kidney injury w/o ATN [ ] Acute Kidney Injury w ATN [ ] Encephalopathy (metabolic) (septic) [ ] Disseminated Intravascular Coagulopathy (DIC) [ ] Hepatic Failure [ ] Additional/Other: please specify: [ ] Septic Shock [ ] Localized infection without sepsis [ ] SIRS due to non-infectious process (please specify etiology) [ ] with organ dysfunction [ ] without organ dysfunction [ ] Other diagnosis (Please specify if any) [ x ] Unable to determine Physician Signature: Date/Time: For continuity of documentation, please document condition throughout progress notes and discharge summary. Thank You. To be completed by CDI/Coding staff for physician review: Present Clinical Indicators - Signs / Symptoms / Labs Results and Location in Medical Record [x] Fever or hypothermia (<96.8 F/36 C or > 100.4 F/38C) Fever H&P on 07/22 [x] Acute organ dysfunction/failure Acute renal failure -ED provider report on 07/22 [x] Oliguria , increase BUN/Cr, decreased GFR, elevated liver enzymes Cr-2.29 - laboratory on 07/22 [x] WBC count (>12,000/mm^4 or <4000/mm^3 or 70% neuts, 10% bands) WBC-21.1 laboratory on 07/22 [x] Possible urosepsis H&P on 07/22 Present Risk Factors Results and Location in Medical Record [x] Pneumonia, UTI, infected wound, gangrenous gall bladder Diabetes or Cancer Acute pyelonephritis ED provider report on 07/22 [x] Surgery / surgical instrumentation / trauma Ruptured/perforated bowel, ruptured appendix Urostomy present in the rt lower quadrant - ED provider report on 07/22 [x] Advancing Age 85 yrs H&P on 07/22 Present Treatments Results and Location in Medical Record [x] Sepsis Protocol with rocephin & vancomycin H&P on 07/22 [x] Vancomycin 1gm IV Medication on 07/24 CDS/Creative Intern Signature: AAS Phone #: Date/Time: 07/28/2020 This is a permanent part of the Medical Record [facility]
--- NOTE | 2020-07-28 08:41 | PQF ---
CLINICAL DOCUMENTATION CLARIFICATION FORM: Dear : Sarah Post MD Date / Time: 07/28/2020 Please exercise your independent, professional judgment in responding to the clarification form. Clinical indicators are provided on the bottom of this form for your review Please check appropriate box(es): Conflicting documentation was noted in the Medical Record; please clarify if patient is being treated/monitored for: [ ] Acute renal failure [x] Acute Renal insufficiency [ ] Other diagnosis (Please specify if any) [ ] Unable to determine Physician Signature: Date/Time: For continuity of documentation, please document condition throughout progress notes and discharge summary. Thank You. To be completed by CDI/Coding staff for physician review: Present Clinical Indicators - Signs / Symptoms / Labs Results and Location in Medical Record [x] Acute renal failure ED provider report on 07/22 [x] She also has an exacerbation of her renal failure ED provider report on 07/22 [x] Worsening renal insufficeny, likely dehydration H&P on 07/22 [x] Renal insufficiency likely dehydration from the nausea & vomiting & poor p.p intake Progress notes on 07/23 [x] Cr-2.29, 1.18. BUN-31,22 Laboratory on 07/22, 07/24 Present Risk Factors Results and Location in Medical Record [x] Aged person 85 yrs ED provider report on 07/22 [x] hypertension H&P on 07/22 [x] Dehydration H&P on 07/22 Present Treatments Results and Location in Medical Record [x] Sodium chloride 250ml IV Medication on 07/22 [x] Sodium chloride 1,000ml IV IVMedication on 07/22 [ ] CDS/Umbrella Tipper Machine Signature: AAS Phone #: Date/Time 07/28/2020 This is a permanent part of the Medical Record [facility]
== END 2020-07-25 10:45 | disposition home or self-care (01) | DRG 690 ==
LOC: NAV ERS 08:55 → NAV ACUTE 13:43
PROVIDERS: ADMIT Internal Medicine; ATTEND Internal Medicine
DX: N10 Acute pyelonephritis (principal); E86.0 Dehydration; H40.9 Unspecified glaucoma; E55.9 Vitamin D deficiency, unspecified; Z20.822 Contact with and (suspected) exposure to COVID-19; Z85.51 Personal history of malignant neoplasm of bladder; Z90.710 Acquired absence of both cervix and uterus; Z87.891 Personal history of nicotine dependence; Z79.899 Other long term (current) drug therapy; N28.9 Disorder of kidney and ureter, unspecified
CPT/HCPCS: 0240U; 80048; 80053; 80202; 81003; 81015; 83605; 85025; 87040; 87077; 87086; 87186; 96365; 96366; J0696; J3370; J3490; J7042; J7050; J7070

== ENCOUNTER 2020-12-10 09:37 | Outpatient (CLI) | payer MEDICARE, BC | END 2020-12-10 09:38 | disposition home or self-care (01) | LOC: NAV RAD 09:37 | PROVIDERS: ATTEND Urology | DX: N20.2 Calculus of kidney with calculus of ureter (principal) | CPT/HCPCS: 74018 ==

== ENCOUNTER 2023-12-26 10:34 | Outpatient (CLI) | payer MEDICARE, BC | END 2023-12-26 10:35 | disposition home or self-care (01) | LOC: NAV RAD 10:34 | PROVIDERS: ATTEND Urology | DX: N20.2 Calculus of kidney with calculus of ureter (principal); N28.89 Other specified disorders of kidney and ureter; M53.3 Sacrococcygeal disorders, not elsewhere classified | CPT/HCPCS: 74018 ==